=== PATIENT | female | born 1990 | race African-American/Black ===

== ENCOUNTER 2018-09-22 13:50 | Emergency (ER) | payer OTHER ==
[~2018-09-22] VITALS: Ht 149.9 cm; Wt 56.7 kg
== END 2018-09-22 16:16 | disposition home or self-care (01) ==
LOC: ER 13:50
DX: O9A.211 Injury, poisoning and certain other consequences of external causes complicating pregnancy, first trimester (principal); Z3A.12 12 weeks gestation of pregnancy; M54.9 Dorsalgia, unspecified; R51 Headache; V49.09XA Driver injured in collision with other motor vehicles in nontraffic accident, initial encounter; Y93.89 Activity, other specified; Y92.89 Other specified places as the place of occurrence of the external cause; Y99.8 Other external cause status